=== PATIENT | female | born 1970 | race Caucasian/White ===

== ENCOUNTER 2018-03-12 08:16 | Emergency (ER) | payer OTHER, BC ==
[~2018-03-12] VITALS: Ht 160 cm; Wt 117.9 kg
--- OUTSIDE RECORDS SUMMARY | ~2018-03-12 | XMS | Clinical Summary ---
Demographics + + + | Address | [address] | | | [place] [address] | + + + | Home Phone | | + + + | Preferred Language | Unknown | + + + | Marital Status | | + + + | Jehovah'S Witness Affiliation | 1013 | + + + | Race | Unknown | + + + | Ethnic Group | Unknown | + + + Author + + + | Author | [facility] | + + + | Organization | [facility] | + + + | Address | Unknown | + + + | Phone | Unavailable | + + + Support + + + + + | Name | Relationship | Address | Phone | + + + + + | Rios Pascual | ECON | [address] | | | | | [place] | | | | | [address] | | + + + + + Care Team Providers + +------+ + | Care Clinical Laboratory Technologist Name | Role | Phone | + +------+ + | Keke See MD | PP | | + +------+ + Allergies No Known Allergies Current Medications + + +-------+---------+------+------+-------+ | Prescription | Sig. | Disp. | Refills | Star | End | Statu | | | | | | t | Date | s | | | | | | Date | | | + + +-------+---------+------+------+-------+ | dexlansoprazole | Take 60 mg by mouth | | | | | Activ | | (DEXILANT) 60 MG | every morning before | | | | | e | | capsule | breakfast. | | | | | | + + +-------+---------+------+------+-------+ | ferrous fumarate | Take 50 mg by mouth | | | | | Activ | | (BRIANNA-SEQUELS) 50 | 3 (three) times | | | | | e | | MG CR tablet | daily with meals. | | | | | | + + +-------+---------+------+------+-------+ Active Problems Not on file Social History + +-------+ +--------+ + | Tobacco Use | Types | Packs/Day | Years | Date | | | | | Used | | + +-------+ +--------+ + | Former Smoker | | | | Quit: 02/23/2005 | + +-------+ +--------+ + + +---+---+---+ | Smokeless Tobacco: | | | | | Never Used | | | | + +---+---+---+ + + +---------+ + | Alcohol Use | Drinks/We | oz/Week | Comments | | | ek | | | + + +---------+ + | No | | | | + + +---------+ + + + + | Sex Assigned at | Date Recorded | | | | + + + | Not on file | | + + + Last Filed Vital Signs + + + + | Vital Sign | Reading | Time Taken | + + + + | Blood Pressure | 110/64 | 03/07/2012 4:00 PM PDT | + + + + | Pulse | 95 | 03/07/2012 4:00 PM PDT | + + + + | Temperature | 37.1 C (98.8 F) | 03/07/2012 3:47 PM PDT | + + + + | Respiratory Rate | 16 | 03/07/2012 4:00 PM PDT | + + + + | Oxygen Saturation | 97% | 03/07/2012 4:00 PM PDT | + + + + | Inhaled Oxygen | - | - | | Concentration | | | + + + + | Weight | 98.8 kg (217 lb 13 | 03/07/2012 2:07 PM PDT | | | oz) | | + + + + | Height | 162.6 cm (5' 4") | 03/07/2012 2:07 PM PDT | + + + + | Body Mass Index | 37.39 | 03/07/2012 2:07 PM PDT | + + + + Plan of Treatment Not on file Results Not on filefrom Last 3 Months Insurance +---------+--------+ +------+-------+ + | Payer | Benefi | Subscriber | Type | Phone | Address | | | t Plan | ID | | | | | | / | | | | | | | Group | | | | | +---------+--------+ +------+-------+ + | PREMERA | PREMER | [id number] | | | [address] [address] | | | A | 0 | | | [place], [place] | | | [place] | | | | [phone] | | | [place] | | | | | | | [place] | | | | | +---------+--------+ +------+-------+ + | PREMERA | PREMER | [id number] | | | [address] [address] | | | A BLUE | 8 | | | [place], [place] | | | CARD | | | | [phone] | +---------+--------+ +------+-------+ + + +--------+ +--------+ + + | Guarantor Name | Accoun | Relation to | Date | Phone | Billing Address | | | t Type | Patient | of | | | | | | | | | | + +--------+ +--------+ + + | SELMA MCKNIGHT | Person | Self | [birth year] | Home: | [address] | | | al/Mike | | 1971 | [phone] | [place] | | | [place] | | | [phone] | [phone] | + +--------+ +--------+ + +
--- OUTSIDE RECORDS SUMMARY | ~2018-03-12 | XMS | Clinical Summary ---
Demographics + + + | Address | [address] | | | [place] [address] | + + + | Home Phone | | + + + | Preferred Language | Unknown | + + + | Marital Status | | + + + | Alevism Affiliation | 1013 | + + + | Race | Unknown | + + + | Ethnic Group | Unknown | + + + Author + + + | Author | [facility] | | | and [place] | + + + | Organization | [facility] | | | and [place] | + + + | Address | Unknown | + + + | Phone | Unavailable | + + + Support + + + + + | Name | Relationship | Address | Phone | + + + + + | Manasa Clemente | ECON | NA | | | | | NA, | | + + + + + | Rios Pascual | ECON | [address] | | | | | [place] | | | | | [address] | | + + + + + Care Team Providers + +------+ + | Care Inspector Circuitry Negative Name | Role | Phone | + +------+ + | Kirill Perez DO | PP | Unavailable | + +------+ + Allergies No Known Allergies Current Medications + + +-------+---------+------+------+-------+ | Prescription | Sig. | Disp. | Refills | Star | End | Statu | | | | | | t | Date | s | | | | | | Date | | | + + +-------+---------+------+------+-------+ | albuterol 90 | Inhale 2 puffs into | | | | | Activ | | mcg/puff inhaler | the lungs every 4 | | | | | e | | | hours. | | | | | | + + +-------+---------+------+------+-------+ | FLUoxetine | Take 20 mg by mouth | | 0 | 01/1 | | Activ | | (PROZAC) 20 mg | Daily. | | | 4/20 | | e | | capsule | | | | 16 | | | + + +-------+---------+------+------+-------+ | dexlansoprazole | Take 60 mg by mouth | | | | | Activ | | (DEXILANT) [address] | every morning before | | | [...] | | + + +-------+---------+------+------+-------+ Active Problems + + + | Problem | Noted Date | + + + | Dysphagia | 08/12/2015 | + + + | Anemia | 08/12/2015 | + + + | Morbid obesity with BMI of 45.0-49.9, adult ([facility]) | 08/12/2015 | + + + | Preventative health care | | + + + + + | Overview: MACIE: 02/03/12 - gastritis, neg for h. pylori | + + + +---+ | Dysmetabolic syndrome X | | + +---+ | GERD (gastroesophageal reflux disease) | | + +---+ Family History + + + + + | Medical History | Relation | Name | Comments | + + + + + | Depression | Other | Family | | | | | history | | | | | of: | | + + + + + | Diabetes | Other | Family | | | | | history | | | | | of: | | + + + + + | Elevated lipids | Other | Family | | | | | history | | | | | of: | | + + + + + | High blood pressure | Other | Family | | | | | history | | | | | of: | | + + + + + | High cholesterol | Other | Family | | | | | history | | | | | of: | | + + + + + | Hypertension | Other | Family | | | | | history | | | | | of: | | + + + + + | Mental illness | Other | Family | | | | | history | | | | | of: | | + + + + + + + +--------+ + | Relation | Name | Status | Comments | + + +--------+ + | Father | | Other | | + + +--------+ + | Mother | | Alive | | + + +--------+ + | Other | Family | | | | | history | | | | | of: | | | + + +--------+ + Social History + + + +--------+ + | Tobacco Use | Types | Packs/Day | Years | Date | | | | | Used | | + + + +--------+ + | Former Smoker | Cigarettes | 0.1 | 15 | Quit: 06/06/2010 | + + + +--------+ + + +---+---+---+ | Smokeless Tobacco: | | | | | Never Used | | | | + +---+---+---+ + + +---------+ + | Alcohol Use | Drinks/We | oz/Week | Comments | | | ek | | | + + +---------+ + | Yes | 0 | 0.0 | once a year | | | Standard | | | | | drinks or | | | | | | | | | | equivalen | | | | | t | | | + + +---------+ + + + + | Sex Assigned at | Date Recorded | | | | + + + | Not on file | | + + + Last Filed Vital Signs + + + + | Vital Sign | Reading | Time Taken | + + + + | Blood Pressure | 123/67 | 08/13/2015 1130 PST | + + + + | Pulse | 59 | 08/13/2015 1145 PST | + + + + | Temperature | 36.1 C (97 F) | 08/13/2015 1048 PST | + + + + | Respiratory Rate | 14 | 08/13/2015 1220 PST | + + + + | Oxygen Saturation | 100% | 08/13/2015 1145 PST | + + + + | Inhaled Oxygen | - | - | | Concentration | | | + + + + | Weight | 118.8 kg (262 lb) | 08/13/2015857 PST | + + + + | Height | 162.6 cm (5' 4") | 08/13/2015857 PST | + + + + | Body Mass Index | 44.97 | 08/13/2015857 PST | + + + + Plan of Treatment + + + + + | Health Maintenance | Due Date | Last Done | Comments | + + + + + | Vaccine: | | | | | Dtap/Tdap/Td (1 - | 0 | | | | Tdap) | | | | + + + + + | Cervical Cancer | | | | | Screening (Pap) | 1 | | | + + + + + | Vaccine: Influenza | | | | | (#1) | 8 | | | + + + + + Results Not on filefrom Last 3 Months Insurance +---------+--------+ +------+ +---------+ | Payer | Benefi | Subscriber | Type | Phone | Address | | | t Plan | ID | | | | | | / | | | | | | | Group | | | | | +---------+--------+ +------+ +---------+ | [employer] | REGENC | [id number] | PPO | [phone] | | | [place] [employer] | 8 | | [address] | | | | [place] | | | | | | | P[place] | | | | | +---------+--------+ +------+ +---------+ + +--------+ +--------+ + + | Guarantor Name | Accoun | Relation to | Date | Phone | Billing Address | | | t Type | Patient | of | | | | | | | | | | + +--------+ +--------+ + + | SELMA PASCUAL | Person | Self | [birth year] | Home: | [address] | | [place] | al/Fam | | 1971 | [phone] | [place] [address] | | | [place] | | | [phone] | | + +--------+ +--------+ + +
--- OUTSIDE RECORDS SUMMARY | ~2018-03-12 | XMS | Clinical Summary ---
Demographics + + + | Address | [address] | | | [place] [address] | + + + | Home Phone | | + + + | Preferred Language | Unknown | + + + | Marital Status | | + + + | Rastafari Affiliation | 1013 | + + + | Race | Unknown | + + + | Ethnic Group | Unknown | + + + Author + + + | Author | [facility] | + + + | Organization | [facility] [employer] [facility] | + + + | Address | Unknown | + + + | Phone | Unavailable | + + + Support + + + + + | Name | Relationship | Address | Phone | + + + + + | Rios Pascual | ECON | [address] | | | | | [place] | | | | | [address] | | + + + + + Care Team Providers + +------+ + | Care Fleet Assistant Name | Role | Phone | + [...] +------+-------+ + | PREMERA | PREMER | [id number] | | | [address] [address] | | | A | 0 | | | [place], [place] | | | [place] | | | | [address] | | | [place] | | | | | | | [place] | | | | | +---------+--------+ +------+-------+ + | PREMERA | PREMER | [id number] | | | [address] [address] | | | A BLUE | 8 | | | [place], [place] | | | CARD | | | | [phone] | +---------+--------+ +------+-------+ + + +--------+ +--------+ [...] | | | [place] | | | [phone] | [phone] | + +--------+ +--------+ + +
--- OUTSIDE RECORDS SUMMARY | ~2018-03-12 | XMS | Clinical Summary ---
Demographics + + + | Address | [address] | | | [place] [address] | + + + | Home Phone | | + + + | Preferred Language | Unknown | + + + | Marital Status | Unknown | + + + | Muslim Affiliation | Unknown | + + + | Race | Unknown | + + + | Ethnic Group | Unknown | + + + Author + + + | Author | [facility] | + + + | Organization | [facility] | + + + | Address | Unknown | + + + | Phone | Unavailable | + + + Care Team Providers + +------+ + | Care Pencil Sorter Name | Role | Phone | + +------+ + PP | Unavailable | + +------+ + Source Comments SEBAS is fully live on both [facility] and [facility] Allergies Not on File Current Medications Not on file Active Problems Not on file Social History + +-------+ +--------+------+ | Tobacco Use | Types | Packs/Day | Years | Date | | | | | Used | | + +-------+ +--------+------+ | Never Assessed | | | | | + +-------+ +--------+------+ + + + | Sex Assigned at | Date Recorded | | | | + + + | Not on file | | + + + Plan of Treatment + + + + + | Health Maintenance | Due Date | Last Done | Comments | + + + + + | Influenza (Flu) | | | | | vaccination (#1) | 8 | | | + + + + + Results Not on filefrom Last 3 Months"
--- OUTSIDE RECORDS SUMMARY | ~2018-03-12 | XMS | Clinical Summary ---
Demographics + + + | Address | [address] | | | [place] [address] | + + + | Home Phone | | + + + | Preferred Language | Unknown | + + + | Marital Status | | + + + | Jew Affiliation | 1013 | + + + | Race | Unknown | + + + | Ethnic Group | Unknown | + + + Author + + + | Author | [facility] | | | and [place] | + + + | Organization | [facility] | | | and [place] [...] [place] | | | | | [address] | | + + + + + Care Team Providers + +------+ + | Care Box Car Loader Name | Role | Phone | + [...] Morbid obesity with BMI of 45.0-49.9, adult ([facility]) | 08/12/2015 | + + + | [...] +------+ +---------+ | [employer] | REGENC | [id number] | PPO | [phone] | | [...] | 1971 | [phone] | [place] [address] | | | [place] | | | [phone] | | + +--------+ +--------+ + +
--- OUTSIDE RECORDS SUMMARY | ~2018-03-12 | XMS | Clinical Summary ---
Demographics + + + | Address | [address] | | | [place] [address] | + + + | Home Phone | | + + + | Preferred Language | Unknown | + + + | Marital Status | Unknown | + + + | Taoism Affiliation | Unknown | + + + | Race | Unknown | + + + | Ethnic Group | Unknown | + + + Author + + + | Author | [facility] | + + + | Organization | [facility] | + + + | Address | Unknown | + + + | Phone | Unavailable | + + + Care Team Providers + +------+ + | Care Middle School Assistant Principal Name | Role | Phone | + +------+ + PP | Unavailable | + +------+ + Source Comments SEBAS is fully live on both [facility] and [facility] InPatient.[facility] Allergies Not on File Current Medications Not [...]
[~2018-03-12 08:16] MED LIST: AMOXICILLIN500 MG PO; DEXALANT PO; GUAIATUSSIN AC10 ML PO; LANSOPRAZOLE30 MG PO; NORCO 5-325 TA1 EACH PO; NORGESTIMATE-E1 EAC1; PERCOCET 5-3251 EACH PO; TYLENOL325 MG PO
[2018-03-12] MEDS ORDERED: DEXILANT60 MG PO (08:42)
[2018-03-12] MEDS ORDERED: ONDANSETRON ODT8 MG PO (10:44)
[2018-03-12] MEDS ORDERED: NORCO 5-325 TA1 EACH PO (10:44)
== END 2018-03-12 11:02 | disposition home or self-care (01) ==
LOC: ED 08:16
DX: K21.9 Gastro-esophageal reflux disease without esophagitis (principal); Z87.891 Personal history of nicotine dependence; Z79.899 Other long term (current) drug therapy
CPT/HCPCS: 80053; 81001; 83690; 85025; 96361; 96374; 96375; 99284; J1170; J7030

== ENCOUNTER 2020-09-03 17:32 | Emergency (ER) | payer OTHER, BC ==
[~2020-09-03] VITALS: Ht 160 cm; Wt 121.8 kg
[~2020-09-03 17:32] MED LIST changes: +DEXILANT60 MG PO; +FERROUS SULFAT325 MG PO; +IBUPROFEN600 MG PO; +NORCO 7.5-3251 EACH PO; +ONDANSETRON ODT8 MG PO; +OXYCODON-ACETA1 EAC2 PO; +SUCRALFATE1 GM PO; +VITAMIN D250000 UNIT PO
[2020-09-03] MEDS ORDERED: LOSARTAN POTAS100 MG PO (17:49)
[2020-09-03] MEDS ORDERED: VITAMIN D325 MC4 PO (17:50)
--- NOTE | 2020-09-04 12:55 | EKG ---
[facility] [address] [facility] [address] [facility] [address] [place], [place] [address] Signed Normal sinus rhythm Normal ECG No previous ECGs available Confirmed by RENETTA LAY MD ([id number]) on 09/04/2020 12:55:36 PM Electronically Signed By: RENETTA LAY MD 09/04/20 1255 PATIENT NAME: TORRES HOWARD Electrocardiogram DATE OF : 70 PHYSICIAN: RENETTA LAY MD REPORT #: [id number] REPORT IS CONFIDENTIAL AND NOT TO BE RELEASED WITHOUT AUTHORIZATION
== END 2020-09-03 19:34 | disposition home or self-care (01) ==
LOC: ED 17:32
DX: I10 Essential (primary) hypertension (principal); F41.9 Anxiety disorder, unspecified; K21.9 Gastro-esophageal reflux disease without esophagitis; Z79.899 Other long term (current) drug therapy
CPT/HCPCS: 71045; 80053; 83735; 84443; 84484; 85025; 99285-25